=== PATIENT | male | born 1945 | race Caucasian/White ===

== ENCOUNTER 2017-12-23 09:54 | Emergency (ER) | payer MEDICARE, OTHER ==
[~2017-12-23 09:54] MED LIST: CEPH-13 PO; DOCU-416 PO; HYDR-317 PO; HYDR-385 PO; IBUP-1671 PO; IBUP600T22 PO; LANI SUBQ; METF-54; METO-233 PO; ONDA4TAB97 PO; OXYB10TA21 PO; OXYC-865 PO; PANT20TA27 PO; PHEN200T32 PO; PIOG30TA34 PO; SIMV-49 PO; TAMS0.4C25 PO
[2017-12-23] MEDS ORDERED: PIOG15TA14 PO (10:15)
[2017-12-23] MEDS ORDERED: SIMV-42 PO (10:15)
[2017-12-23] MEDS ORDERED: METF-452 PO (10:15)
[2017-12-23 10:41] LABS: PLATELET COUNT, AUTOMATED 352 K/uL (150-450)
--- NOTE | 2017-12-23 10:56 | EKG ---
FACILITY: [facility] - [place] PATIENT NAME: DUSTY WELCH : [id number] MR: [id number] V: [id number] EXAM DATE: ORDERING PHYSICIAN: OLYA TRINIDAD TECHNOLOGIST: KELIN Pitts Reason : CP Blood Pressure : / mmHG Vent. Rate : 054 BPM Atrial Rate : 054 BPM P-R Int : 148 ms QRS Dur : 098 ms QT Int : 508 ms P-R-T Axes : 041 041 213 degrees QTc Int : 481 ms Sinus bradycardia Inferior infarct (cited on or before 25-MAR-2016) T wave abnormality, consider lateral ischemia Abnormal ECG When compared with ECG of 25-MAR-2016 19:04, Electronic demand pacing is no longer present premature ventricular complexes are no longer present ST now depressed in Anterior leads T wave inversion now evident in Anterior leads Confirmed by Andrew Pires ([id number]) on 12/23/2017 11:29:03 AM Referred By: VIVI Confirmed By:Andrew Lafleur
[2017-12-23] MEDS ORDERED: MAGNESIUM CITRATE 300 ML BTL PO ONE (13:00)
[2017-12-23] MEDS ORDERED: NS(*) 0.9% 1000 ML BAG 1,000 ML IV ONE (13:00)
--- NOTE | 2017-12-23 14:08 | RADIOLOGY IMAGING REPORT ---
FACILITY: [facility] - [place] PATIENT NAME: Brett Arellano : 1945 MR: [id number] V: [id number] EXAM DATE: ORDERING PHYSICIAN: OLYA TRINIDAD TECHNOLOGIST: [place] [facility] [place] Brett Arellano : 1945 Visit/Account:[id number] Date of Sevice: 12/23/2017 Exam type: ACUTE ABDOMEN SERIES 3 VIEW History: constipation??? Comparison: April 30, 2016. And CT abdomen and pelvis July 12, 2016 Findings: Supine and upright views the abdomen reveal a nonspecific bowel gas pattern. There is no gross evide nce of organomegaly.. Vascular calcifications are identified in the splenic artery. There are mild to moderate spondylotic changes lumbar spine. PA view the chest demonstrates linear scarring in the right lung base. There is no evidence of acute pulmonary consolidation pleural effusions or pulmonary edema. Cardiac swelling is normal in size. Sternotomy sutures are present IMPRESSION: 1. Nonspecific bowel gas pattern Linear scarring in the right lung base Report Dictated By: Kristyn Martell MD at 12/23/2017 2:00 PM Report E-Signed By: Kristyn Martell MD at 12/23/2017 2:03 PM WSN:[email or web address]
[2017-12-23] MEDS ORDERED: METOPROLOL SUCC XL 50 MG TABCR 50 MG TAB.ER.24H PO ONE (14:40)
[2017-12-23] MEDS ORDERED: KETOROLAC 30 MG/ML VIAL IVP ONE (15:00)
[2017-12-23] MEDS ORDERED: ONDA4TAB PO (15:25)
--- NOTE | 2017-12-23 15:26 | ER Report ---
History and Physical Time Seen By MD: 10:15 Hx. of Stated Complaint: N/V SINCE FRIDAY, CONSTIPATION HPI/ROS This is a 72-year-old male with a history of hypertension, coronary artery disease, and hyperlipidemia. He presented to the emergency department today saying that he has not had a bowel movement since Friday, and also complaining of intermittent nausea and vomiting. He denies any abdominal pain. He has not had any abdominal surgeries. He is still passing gas. He did eat some prunes yesterday, and states that he had an episode of diarrhea last night. He decided to come to the emergency department today when he had another episode of vomiting. He said that he tried to take his blood pressure medicine this mor xander, but vomited. He denies chest pain or shortness of breath. He does have a history of coronary artery disease and CABG, but states that nausea and vomiting is not his anginal equivalent. He denies any urinary symptoms or fever chills. Remainder of the 14 system rev: Yes Allergies: Coded Allergies: No Known Drug Allergies (Unverified , 03/25/16) Home Meds Reported Medications Simvastatin (ZOCOR) 20 Mg Tablet, 20 MG PO HS, TAB 12/23/17 Metformin Hcl (METFORMIN HCL) 1,000 Mg Tablet, 1 TAB PO BID, TAB 12/23/17 Insulin Glargine (LANTUS) 100 Unit/Ml Soln, 9 UNIT SUBQ HS, ML 03/27/16 Pantoprazole Sodium (PANTOPRAZOLE SODIUM) 20 Mg Tablet.dr, 20 MG PO QDAY, TAB.SR 03/27/16 Metformin HCl (Metformin HCl ER) 1,000 Mg [id number] 03/27/16 Pioglitazone Hcl (ACTOS) 30 Mg Tablet, 30 MG PO QDAY 03/27/16 Metoprolol Succinate (TOPROL XL) 50 Mg Tab.er.24h, 2 TAB PO QDAY, TAB 03/27/16 Discontinued Reported Medications Pioglitazone Hcl (ACTOS) 15 Mg Tablet, 15 MG PO QDAY 12/23/17 Docusate Sodium (COLACE) 100 Mg Capsule, 100 MG PO BID, #30 CAPSULE 05/02/16 Ibuprofen (IBUPROFEN) 600 Mg Tablet, 1 TAB PO Q6H PRN for PAIN, #20 TAB 05/02/16 Phenazopyridine Hcl (PHENAZOPYRIDINE HCL) 200 Mg Tablet, 200 MG PO TID PRN for BURNING WITH URINATION, #20 TAB 05/02/16 Oxybutynin Chloride (DITROPAN XL) 10 Mg Tab.er.24, 10 MG PO QDAY PRN for URGENCY, #5 TAB 05/02/16 Hydrocodone Bit/Acetaminophen (HYDROCODON-ACETAMINOPHEN 5-325) 1 Each Tablet, 1- 2 EACH PO Q6H PRN for PAIN, #20 TAB 05/02/16 Simvastatin (SIMVASTATIN) 20 Mg Tablet, 20 MG PO HS, TAB 03/27/16 Discontinued Scripts Tamsulosin Hcl (FLOMAX) 0.4 Mg Cap.er.24h, 0.4 MG PO QHS for ureter relaxation, #30 CAP Prov:JONH JI DO 03/25/16 Reviewed Nurses Notes: Yes Old Medical Records Reviewed: Yes Hx Smoking: No Hx Substance Use Disorder: No Hx Alcohol Use: Yes Family History of: HTN, Diabetes, Cardiac Constitutional Vital Sign - Last 24 Hours 12/23/17 10:07 Temp 98.8 Pulse 63 Resp 18 B/P (MAP) 173/86 Pulse Ox 95 O2 Delivery Room Air Physical Exam General Appearance: The patient is alert, has no immediate need for airway protection and no current signs of toxicity. Eyes: Pupils equal and round no injection. Respiratory: Chest is non tender, lungs are clear to auscultation. Cardiac: regular rate and rhythm Gastrointestinal: Abdomen is soft and non tender, no masses, bowel sounds normal. Neck: Neck is supple and non tender. Extremities have full range of motion and are non tender. Skin: No rashes or lesions. DIFFERENTIAL DIAGNOSIS: After history and physical exam differential diagnosis was considered for abdominal pain including but not limited to appendicitis, cholecystitis, gastritis, SBO, LA, and urinary tract infection. Medical Decision Making Data Points Result Diagram: 12/23/17 1024 12/23/17 1024 Laboratory Hematology Test 12/23/17 10:01 12/23/17 10:24 12/23/17 14:48 Urine Color Yellow Urine Clarity Clear Urine pH 5.0 pH (4.8-9.5) Urine Specific [place] 1.024 Urine Protein Negative mg/dL (NEGATIVE) Urine Glucose (UA) Negative mg/dL (NEGATIVE) Urine Ketones Trace mg/dL (NEGATIVE) Urine Blood Negative (NEGATIVE) Urine Nitrite Negative (NEGATIVE) Urine Bilirubin Negative (NEGATIVE) Urine Urobilinogen Negative mg/dL (0.2-1.9) Urine Leukocyte Esterase Negative (NEGATIVE) Urine RBC 1 /HPF (0-2/HPF) Urine WBC 1 /HPF (0-5/HPF) Urine Squamous Epithelial Cells None /LPF (</=FEW) Urine Bacteria Negative /HPF (NONE-FEW) Urine Hyaline Casts Few /LPF (NONE-FEW) Urine Mucus Few /HPF (NONE-FEW) Red Blood Count 5.37 M/uL (4.00-5.60) Mean Corpuscular Volume 68.6 fL (80.0-96.0) Mean Corpuscular Hemoglobin 22.1 pg (26.0-33.0) Mean Corpuscular Hemoglobin Concent 32.2 g/dL (32.0-36.0) Red Cell Distribution Width 19.9 % (11.5-14.5) Mean Platelet Volume 8.1 fL (7.2-11.1) Neutrophils (%) (Auto) 81.0 % (39.4-72.5) Lymphocytes (%) (Auto) 10.4 % (17.6-49.6) Monocytes (%) (Auto) 7.4 % (4.1-12.4) Eosinophils (%) (Auto) 0.5 % (0.4-6.7) Basophils (%) (Auto) 0.7 % (0.3-1.4) Nucleated RBC Relative Count (auto) 0.0 /100WBC Neutrophils # (Auto) 7.2 K/uL (2.0-7.4) Lymphocytes # (Auto) 0.9 K/uL (1.3-3.6) Monocytes # (Auto) 0.7 K/uL (0.3-1.0) Eosinophils # (Auto) 0.0 K/uL (0.0-0.5) Basophils # (Auto) 0.1 K/uL (0.0-0.1) Nucleated RBC Absolute Count (auto) 0.00 K/uL Sodium Level 136 mmol/L (137-145) Potassium Level 3.8 mmol/L (3.5-5.0) Chloride Level 99 mmol/L (98-107) Carbon Dioxide Level 21 mmol/L (22-30) Blood Urea Nitrogen 17 mg/dl (9-21) Creatinine 0.80 mg/dl (0.66-1.25) Glomerular Filtration Rate Calc > 60.0 Random Glucose 143 mg/dl (75-110) Calcium Level 9.4 mg/dl (8.4-10.2) Total Bilirubin 0.5 mg/dl (0.2-1.3) Aspartate Amino Transf (AST/SGOT) 25 U/L (0-35) Alanine Aminotransferase (ALT/SGPT) 11 U/L (0-56) Alkaline Phosphatase 45 U/L (0-126) Total Protein 6.5 g/dl (6.3-8.2) Albumin 4.1 g/dl (3.5-5.0) Chemistry Test 12/23/17 10:01 12/23/17 10:24 12/23/17 14:48 Urine Color Yellow Urine Clarity Clear Urine pH 5.0 pH (4.8-9.5) Urine Specific [place] 1.024 Urine Protein Negative mg/dL (NEGATIVE) Urine Glucose (UA) Negative mg/dL (NEGATIVE) Urine Ketones Trace mg/dL (NEGATIVE) Urine Blood Negative (NEGATIVE) Urine Nitrite Negative (NEGATIVE) Urine Bilirubin Negative (NEGATIVE) Urine Urobilinogen Negative mg/dL (0.2-1.9) Urine Leukocyte Esterase Negative (NEGATIVE) Urine RBC 1 /HPF (0-2/HPF) Urine WBC 1 /HPF (0-5/HPF) Urine Squamous Epithelial Cells None /LPF (</=FEW) Urine Bacteria Negative /HPF (NONE-FEW) Urine Hyaline Casts Few /LPF (NONE-FEW) Urine Mucus Few /HPF (NONE-FEW) White Blood Count 8.9 k/uL (4.5-11.0) Red Blood Count 5.37 M/uL (4.00-5.60) Hemoglobin 11.8 g/dL (14.0-18.0) Hematocrit 36.8 % (42.0-52.0) Mean Corpuscular Volume 68.6 fL (80.0-96.0) Mean Corpuscular Hemoglobin 22.1 pg (26.0-33.0) Mean Corpuscular Hemoglobin Concent 32.2 g/dL (32.0-36.0) Red Cell Distribution Width 19.9 % (11.5-14.5) Platelet Count 352 K/uL (150-450) Mean Platelet Volume 8.1 fL (7.2-11.1) Neutrophils (%) (Auto) 81.0 % (39.4-72.5) Lymphocytes (%) (Auto) 10.4 % (17.6-49.6) Monocytes (%) (Auto) 7.4 % (4.1-12.4) Eosinophils (%) (Auto) 0.5 % (0.4-6.7) Basophils (%) (Auto) 0.7 % (0.3-1.4) Nucleated RBC Relative Count (auto) 0.0 /100WBC Neutrophils # (Auto) 7.2 K/uL (2.0-7.4) Lymphocytes # (Auto) 0.9 K/uL (1.3-3.6) Monocytes # (Auto) 0.7 K/uL (0.3-1.0) Eosinophils # (Auto) 0.0 K/uL (0.0-0.5) Basophils # (Auto) 0.1 K/uL (0.0-0.1) Nucleated RBC Absolute Count (auto) 0.00 K/uL Glomerular Filtration Rate Calc > 60.0 Calcium Level 9.4 mg/dl (8.4-10.2) Total Bilirubin 0.5 mg/dl (0.2-1.3) Aspartate Amino Transf (AST/SGOT) 25 U/L (0-35) Alanine Aminotransferase (ALT/SGPT) 11 U/L (0-56) Alkaline Phosphatase 45 U/L (0-126) Total Protein 6.5 g/dl (6.3-8.2) Albumin 4.1 g/dl (3.5-5.0) Urinalysis Test 12/23/17 10:01 Urine Color Yellow Urine Clarity Clear Urine pH 5.0 pH (4.8-9.5) Urine Specific [place] 1.024 Urine Protein Negative mg/dL (NEGATIVE) Urine Glucose (UA) Negative mg/dL (NEGATIVE) Urine Ketones Trace mg/dL (NEGATIVE) Urine Blood Negative (NEGATIVE) Urine Nitrite Negative (NEGATIVE) Urine Bilirubin Negative (NEGATIVE) Urine Urobilinogen Negative mg/dL (0.2-1.9) Urine Leukocyte Esterase Negative (NEGATIVE) Urine RBC 1 /HPF (0-2/HPF) Urine WBC 1 /HPF (0-5/HPF) Urine Squamous Epithelial Cells None /LPF (</=FEW) Urine Bacteria Negative /HPF (NONE-FEW) Urine Hyaline Casts Few /LPF (NONE-FEW) Urine Mucus Few /HPF (NONE-FEW) EKG/Imaging EKG Interpretation 12 lead EKG: Rhythm: normal sinus rhythm [place]: normal QRS: normal ST segments: inverted T waves in inferior and lateral leads Same as previous EKGs ED Course/Re-evaluation Clinical Indication for ER IV: Hydration ED Course Nausea and vomiting intermittently for 2 or 3 days. No abdominal pain and with benign abdominal exam. No urinary symptoms and no fever chills. No evidence of a bowel obstruction. The patient thought he was constipated, but he does not appear overly constipated on plain films. He received 1 L of normal saline and is able to take by mouth. Because he does have diabetes and there is a risk of silent LA, 2 troponins were obtained and both were normal. There are no EKG changes. I do not think he needs any further imaging of his abdomen. His blood pressure was mildly elevated, but he did state that he vomited his morning medications. I gave him another dose of his Toprol XL in the emergency department. We will also give him some magnesium citrate for home to help with his lack of bowel movements over the past few days. I will also send him home with a prescription for Zofran in case his nausea returns. Decision to Disposition Date: Dec 23, 2017 Decision to Disposition Time: 15:19 Depart Departure Latest Vital Signs Vital Signs Date Time Temp Pulse Resp B/P (MAP) Pulse Ox O2 Delivery O2 Flow Rate FiO2 12/23/17 10:07 98.8 63 18 173/86 95 Room Air Impression: Primary Impression: Nausea & vomiting Condition: Improved Disposition: HOME OR SELF-CARE Referrals: CEE LEONARD MD (PCP) New Scripts Ondansetron (ZOFRAN ODT) 4 Mg Tab.rapdis 4 MG PO Q6H PRN for NAUSEA/VOMITING, #20 TAB.[place] 0 Refills Prov: OLYA TRINIDAD MD 12/23/17 Patient Instructions: Acute Nausea and Vomiting (ED) Problem Qualifiers Primary Impression: Nausea & vomiting Vomiting type: unspecified Vomiting Intractability: non-intractable Qualified Codes: R11.2 - Nausea with vomiting, unspecified OLYA TRINIDAD MD Dec 23, 2017 15:26
[2017-12-23 15:28] VITALS: BP 190/80
== END 2017-12-23 15:35 | disposition home or self-care (01) ==
LOC: ER 10:20
DX: R11.2 Nausea with vomiting, unspecified (principal); E11.9 Type 2 diabetes mellitus without complications; R00.1 Bradycardia, unspecified
CPT/HCPCS: 36415; 74022; 81001; 84484; 85025; 93005; 96361; 96374; 99283; A9270; J1885; J7030; 82040; 82247; 82310; 82374; 82435; 82565; 82947; 84075; 84132; 84155; 84295; 84450; 84460; 84520

== ENCOUNTER → 2018-05-12 | Outpatient (CLI) | payer MEDICARE, OTHER ==
[~2018-05-12] MED LIST changes: +METF-452 PO; +ONDA4TAB PO; +PIOG15TA14 PO; +SIMV-42 PO
--- NOTE | 2018-05-12 14:36 | RADIOLOGY IMAGING REPORT ---
FACILITY: [facility] - [place] PATIENT NAME: Brett Arellano : 1945 MR: [id number] V: [id number] EXAM DATE: ORDERING PHYSICIAN: WILLIAM FLORES TECHNOLOGIST: Location: [facility] [place] Patient: Brett Arellano : 1945 Visit/Account:[id number] Date of Sevice: 05/12/2018 CT ABDOMEN PELVIS W/O CON HISTORY: Kidney stones TECHNIQUE: Axial images acquired through the abdomen/pelvis. Coronal and sagittal reformatting also performed. No IV contrast administered.Dose Lowering Technique One of the following dose optimization techniques was utilized in the performance of this exam: Autom ated exposure control; adjustment of the mA and/or kV according to the patient's size; or use of an i terative reconstruction technique. Specific details can be referenced in the facility's radiology C T exam operational policy. COMPARISON: July 12, 2016 FINDINGS: Visualized lung bases: Linear scarring in the lung bases . Coronary artery calcifications Hepatobiliary: 4.5 cm cyst in the left lobe of the liver Spleen: Negative. Adrenals: Negative. Pancreas: Negative. Kidneys ureters and bladder: 1 mm and 2 mm calculus is again seen in the upper pole of the left kidne y. There are two 1 mm calcifications upper pole of the right kidney and two 1 mm calcifications in t he midpole of the right kidney. Lower pole right renal cyst again seen. Other subcentimeter hypoden sities within the kidneys are too small to characterize Genitalia: Prostate gland is mildly enlarged impinging upon the floor the bladder GI: There is colonic diverticulosis although no CT evidence of acute diverticulitis. The appendix i s visualized and does not appear inflamed. Is a small hiatal hernia. Vessels/spaces/nodes: Moderate vascular calcination occasions are seen throughout the abdominal aort a and branch vessels. There is a small saccular dilatation of the mid infrarenal abdominal aorta sli ghtly increased now measuring 2.7 x 2.6 m as opposed to 2.2 x 2.4 cm Bones/soft tissues: There moderate spondylotic changes in the lumbar spine and mild chronic compress ion fracture of L1 Additional findings: None pertinent. IMPRESSION: Nonobstructing calculi in both renal collecting systems. No evidence of hydronephrosis or hydrourete r Additional chronic findings as described Report Dictated By: Kristyn Martell MD at 05/12/2018 2:13 PM Report E-Signed By: Kristyn Martell MD at 05/12/2018 2:30 PM ASHLEYN:DAYAMI
== END ==
LOC: LAB 10:48
PROVIDERS: ATTEND Urology
DX: Z12.5 Encounter for screening for malignant neoplasm of prostate (principal); N20.0 Calculus of kidney; N40.0 Benign prostatic hyperplasia without lower urinary tract symptoms; K57.30 Diverticulosis of large intestine without perforation or abscess without bleeding
CPT/HCPCS: 36415; 74176; G0103; 84153